=== PATIENT | male | born 1965 | race Caucasian/White ===

== ENCOUNTER 2022-10-20 14:58 | Emergency (ER) | payer MEDICAID, SELFPAY ==
[2022-10-20 15:12] VITALS: BP 105/64; PULSE 66; RESP 17; TEMP 36.8; O2SAT 95; BMI 22.3
--- NOTE | 2022-10-20 15:32 | XR_ITS ---
WS: [id number] Left forearm, AP and lateral views, 10/20/2022 Clinical Data: fall Comparison: None. Findings: There is a fracture of the distal left radius with dorsal displacement. There is an ulnar styloid fra cture. There is soft tissue swelling about the fractures. The proximal left radius and ulna are normal. XR/XR forearm LT 2V [id number] Impression: Fractures of the distal left radius and left ulnar styloid.
--- NOTE | 2022-10-20 15:32 | ED_ITS ---
HPI - Fall General: Chief Complaint: Fall Stated Complaint: FALL/ WRIST FX Time Seen by Provider: 10/20/22 15:02 Source: patient Mode of arrival: EMS Limitations: no limitations History of Present Illness: This patient was transported to the emergency department by EMS. He apparently was walking down the road and slipped on ice. He states he landed on his left arm. He has had a previous fracture in that arm and thinks he may have broken it again. He denies any head injury, other associated pain. Does not take any anticoagulant or antiplatelet agents. Place fall occurred: street Loss of consciousness: None Location of injury - extremities: Left: forearm Associated symptoms-after fall: Denies chest pain, headache(s), neck pain or vertigo Review of Systems Const: Denies: fever(s) or chills Card: Denies: chest pain, palpitations, syncope or pre-syncope Resp: Denies: dyspnea, productive cough or non-productive cough GI: Denies: nausea, vomiting or diarrhea : Denies: flank pain Musc: Reports: extremity pain and limited range of motion; Denies: neck pain or back pain Skin/Breast: Denies: rash or pruritus Neuro: Denies: headache(s), numbness in extremities, weakness in extremities, dizziness, vertigo or seizure-like activity Psych: Denies: anxiety or depression Physical Exam Narrative: EXAM NARRATIVE: Is alert makes good eye contact speech is goal-directed. He is somewhat disheveled. Const: COMMON NORMALS: no acute distress and average body habitus GENERAL APPEARANCE: cooperative and disheveled ORIENTATION/CONSCIOUSNESS: Yes awake HENMT: COMMON NORMALS: normocephalic, atraumatic, moist oral mucous membranes and oropharynx normal HEAD & SCALP: normocephalic and atraumatic FACE & SINUS: normal facial exam Eye: COMMON NORMALS: Equal, round and reactive pupils present, EOMs intact bilaterally and conjunctivae normal CONJUNCTIVA: Yes conjunctivae normal PUPIL: Yes Equal, round and reactive pupils present Neck/C-Spine: COMMON NORMALS: full ROM CERVICAL SPINE: Yes cervical ROM normal, No Cervical spine tenderness, No step off deformity, No Paracervical spasm and No Trapezius muscle tenderness Chest: COMMONS NORMALS: normal inspection of the chest and normal palpation of entire chest wall Resp: COMMON NORMALS: normal respiratory effort, No use of accessory muscles and clear to auscultation bilaterally AUSCULTATION: clear to auscultation bilaterally Cardio: COMMON NORMALS: regular rate, regular rhythm and Peripheral pulses 2+ throughout RATE: regular rate RHYTHM: regular rhythm PERIPHERAL PULSES: Peripheral pulses 2+ throughout GI: COMMON NORMALS: Normal to inspection, nondistended, normoactive bowel sounds present and Soft to palpation PALPATION: Yes Soft to palpation : COMMON NORMALS: Yes no CVA tenderness BLADDER/KIDNEY EXAM: Yes no CVA tenderness Back/Pelvis: COMMON NORMALS: no CVA tenderness, thoracic and lumbar spine normal to inspection, no thoracic nor lumbar tenderness and thoraco-lumbar ROM normal PELVIS: Yes no pain with anterior-posterior compression and Yes no pain with lateral compression Extremity: NARRATIVE EXTREMITY EXAM: A flexible moldable splint was noted to be on the left forearm. After removal of the splint the arm was noted to have a dinner fork deformity at the distal one third. Neurovascular intact with good capillary refill and palpable radial ulnar pulses. Neuro: RADHA COMA SCALE: document GCS findings Radha coma scale eye opening: Spontaneous Radha coma scale verbal response: Orientated [place] coma scale motor response: Obey commands [place] coma scale total score: 15 COMMON NORMALS: moves all extremities, no focal motor deficits and no sensory deficits noted Skin: COMMON NORMALS: no rashes or lesions noted, no wounds and turgor normal GENERAL SKIN EXAM: no rashes or lesions noted and turgor normal Procedures Orthopedic Fracture Reduction Fracture #1: Time Out Performed: Yes Side: left Fracture Reduction Location: radius and ulna Analgesia: procedural sedation (Using propofol plus fentanyl) Technique: direct manipulation Post Reduction X-rays Demonstrate: anatomical reduction Post-reduction neuro exam: intact Post-reduction vascular exam: intact Splint Applied: Yes Patient Tolerated Procedure: well Additional Comments: Using situation of the deformity and then direct pressure the distal radius was approximated in a near anatomic position. Post reduction x-rays confirmed. He was placed in a sugar-tong splint and given a sling. Course Reevaluation(s): Reevaluation #1: Patient has recovered from sedation is at his baseline. We discussed expected course and orthopedic follow-up. Time: 17:39 Vital Signs: Vital signs: Vital Signs Temperature 98.2 F 10/20/22 15:12 Pulse Rate 80 10/20/22 17:15 Respiratory Rate 18 10/20/22 17:15 Blood Pressure 105/64 10/20/22 15:12 Pulse Oximetry 95 10/20/22 15:12 Oxygen Delivery Me thod 10/20/22 17:15 MDM - Fall Medical Decision Making Patient presented to our emergency department after ground-level fall without syncope, head injury etc. He suffered an isolated distal radius fracture. No evidence of other injury on his clinical examination. After informed consent the patient was reduced using procedural sedation and a near anatomic reduction was obtained. He was placed in a sugar-tong splint. Again he remained stable post sedation and will be referred to orthopedics for follow-up and either casting and/or operative fixation as indicated. We discussed potential for loss of reduction. Lab Data I reviewed the patient's lab results. Radiology Impressions Forearm X-Ray 10/20/22 15:32 Impression: Fractures of the distal left radius and left ulnar styloid. Discharge Plan Discharge Patient Disposition: Home Clinical Impression: Closed fracture of distal end of left radius Condition: Stable Prescriptions: New hydrocodone-acetaminophen 5-325 mg tablet 1 tab PO BID PRN (Reason: pain) Qty: 10 0RF Discharge Orders: Discharge ED (Routine); Ordered 10/20/22 Ordered By: Sage Gregory Discharge Diet: Usual diet Discharge Activity: Limit activity as instructed Patient Instructions: Opioid Safety, Pain Management Activity Restrictions/Additional Instructions: Keep splint dry. This is only a temporary splint until you are seen by the orthopedic surgeon. Use the sling for comfort. If you have significantly increasing pain, numbness, tingling or change in the color of your fingers etc. return to this emergency department immediately. You will be contacted in the next few days by case management regarding her orthopedic follow-up. Coding Level of Care Code ED Training And Development Officer for [place] Skinner Exam Comprehensive
--- NOTE | 2022-10-20 15:41 | PC.PHAR ---
pt states he takes no rx or otc medications-no meds pull up on ext med history
[2022-10-20 17:15] VITALS: PULSE 80; RESP 18; O2SAT 100
[2022-10-20 17:18] VITALS: BP 132/70; PULSE 76; RESP 20; O2SAT 99
--- NOTE | 2022-10-20 17:18 | XRR_ITS ---
PROCEDURE INFORMATION: Exam: XR Left Wrist Exam date and time: 10/20/2022 5:18 PM Age: 57 years old Clinical indication: Pain; Wrist; Left; Additional info: Wrist FX, post reduction TECHNIQUE: Imaging protocol: Radiologic exam of the Left wrist. Views: 1 or 2 views. COMPARISON: No relevant prior studies available. FINDINGS: Bones/joints: Comminuted and impacted fracture of the distal left radius with moderate radial displacement of the major fracture fragment. Displaced ulnar styloid process avulsion fractures also visualized. No dislocation. Soft tissues: Surrounding soft tissue swelling of the wrist. XR/XR wrist LT 2V [id number] IMPRESSION: 1. Comminuted and impacted distal left radius fracture with moderate displacement. 2. Displaced ulnar styloid process fracture.
[2022-10-20 18:00] VITALS: PULSE 73; O2SAT 97
--- NOTE | 2022-10-21 09:08 | DCPLANNER ---
Addendum entered by Ayaka Amaro 11/30/22 07:13: Patient had follow up appointment with ortho - patient did attend appointment. Addendum entered by Ayaka Amaro 10/21/22 11:40: Patient has a follow up appointment scheduled for Monday, October 24, 2022 at 9:[address] Harmon. Clinic will call patient with appointment information. Original Note: traffic operations manager had message to schedule a follow up appointment for patient with ortho. traffic operations manager sent patients information to the front office staff at ortho. Patients information will be printed and reviewed. Clinic will call patient with appointment information.
== END 2022-10-20 18:26 | disposition home or self-care (01) ==
PROVIDERS: Emergency Provider Emergency Medicine
DX: S52.502A Unspecified fracture of the lower end of left radius, initial encounter for closed fracture (principal); W00.0XXA Fall on same level due to ice and snow, initial encounter
CPT/HCPCS: 29125; 73090; 73100; 99283

== ENCOUNTER 2022-10-28 08:27 | Day surgery (SDC) | payer MEDICAID, SELFPAY ==
[2022-10-27 09:59] VITALS: BMI 22.3
[2022-10-28] VITALS (12 sets, daily range): BP systolic 103–148; BP diastolic 60–98; PULSE 59–77; RESP 12–20; TEMP 36.1–37.3; O2SAT 97–100
--- NOTE | 2022-10-28 | XR_ITS ---
WS: [id number] Exam: XR wrist LT 1V [id number] Date/Time of Exam: 10/28/2022 12:00 AM Reason For Exam: Left distal radius open reduction internal fixation intra-ar Single lateral view of the left wrist is submitted for evaluation. Comparison to October 20, 2022. There is volar plate and screw fixation involving a fracture of the distal radial metaphysis. Postope rative changes in the adjacent soft tissues. Soft tissue swelling about the wrist and distal forearm. No other significant finding from this single image presented.
--- NOTE | 2022-10-28 08:53 | W.PM.OPSUD ---
Surgery/Procedure H&P Update DATE OF PROCEDURE: October 28, 2022 DATE H&P PERFORMED: 10/24/22 CHANGES TO PREVIOUS DOCUMENTATION: None PREOP DIAGNOSIS: Displaced, angulated left distal radius fracture PRIMARY INDICATION FOR PROCEDURE: Patient has displaced and angulated left distal radius fracture PLANNED PROCEDURE: Operation Date: 10/28/22 12:35 Proposed Procedures p Left Distal radius open reduction internal [id number](Left) - Zi Harmon DO
--- NOTE | 2022-10-28 09:04 | ANES.PREANE2 ---
Pre-Anesthetic Assessment Height/Weight: Height 1.8 m Weight 72.575 kg Temp Pulse Resp BP Pulse Ox O2 Del Method 97.1 F L 59 L 18 144/78 97 10/28/22 07:40 10/28/22 07:40 10/28/22 07:40 10/28/22 07:40 10/28/22 07:40 10/28/22 08:57 Preop Diagnosis: Displaced, angulated left distal radius fracture Operation Date: 10/28/22 12:35 Proposed Procedures p Left Distal radius open reduction internal [id number](Left) - Zi [place], Familial anesthetic complications: None Was Beta Cris taken within 24 hours: N/A Was Clonidine taken within 24 hours: N/A Last intake: Intake Last Liquid Date 10/27/22 Last Liquid Time 20:00 Last Solid Date 10/27/22 Last Solid Time 20:00 Social Tobacco and No alcohol Exam alert, oriented x 3, clear to auscultation bilaterally and regular rate & rhythm Airway Mallampati: Class I Dentition: other (no teeth) Anesthetic Plan ASA status: 1 Anesthesia: General and Regional (specify below) Risk of > 500 ml blood loss (7ml/kg in children): No Medications/Allergies Home Medications Medication Instructions Recorded Confirmed Last Taken Type ketorolac 10 mg tablet 10 mg PO Q8H 4 days #12 tabs 10/24/22 10/27/22 Unknown Rx hydrocodone 5 mg-acetaminophen 325 1 tab PO Q6H PRN pain 7 days #28 10/28/22 Unknown Rx mg tablet tabs Allergies Allergy/AdvReac Type Severity Reaction Status Date / Time No Known Allergies Allergy Verified 10/28/22 08:54 Data Anesthesia Cardiac Studies: No Data to Display
[2022-10-28] MEDS: sodium chloride 0.9% 1,000 ML 30 ML IV (09:08)
[2022-10-28] MEDS: acetaminophen 1,000 MG/100 ML PIGGYBACK 400 MG IV (09:09)
[2022-10-28] MEDS: ketorolac 30 mg/mL INJ IVP (09:10)
[2022-10-28] MEDS: ceFAZolin 2,000 MG in sodium chloride 0.9% (plus) 50 ML 100 MG IV (09:53)
--- NOTE | 2022-10-28 09:54 | ANES.PROC ---
Anesthesia Procedures Procedure/Date: 10/28/22 Nerve Block ^: Nerve Block 1: Main Anesthesia: general anesthesia Time Out Performed: Yes Consent: requested by attending/covering physician, from patient, from other, risks and benefits reviewed and patient agrees to proceed Anesthesia monitors applied: pulse oximetry, EKG, BP cuff and oxygen Nerve block position: supine Anesthetic Used: ropivicaine 0.5% (30 ml) and with decadron (4 mg) Ultrasound used to: recognize landmarks and visualize and ID brachial plexus Nerve Stimulator Used?: No Interscalene/Femoral BLK: 2 stimuplex 22 g needle used for position and inplane approach, visualize local anesthetic spread and no vascular puncture identified Injection: neg aspiration of heme Patient Tolerated Procedure: well Complications: none
--- NOTE | 2022-10-28 10:31 | PC.NURSE ---
prior to surgery, scrubbed the left arm to fingertips x2 with 4% chg scrub brushes
--- NOTE | 2022-10-28 11:33 | PM.OP2 ---
Brief Operative Note Date of procedure: 10/28/22 Pre-op diagnosis: Left distal radius 3 part intra-articular fracture Post-op diagnosis: same Procedure Done: Left distal radius open reduction internal fixation intra-articular 3 part Surgeon: Zi Harmon Estimated blood loss (mL): 3 Complications: None Post-op Plan: Patient taken to PACU in stable condition recovering well. Splint on in place. Patient will receive appropriate discharge instructions as well as pain medication postoperatively. We will plan on following up with patient in 1 week for splint takedown and incision check and reapplication of splint, given that patient did already have a significantly dirty splint within the past 5 days of a new splint being applied. He understands importance of appropriate hygiene for infection prophylaxis and as well as be nonweightbearing to the left wrist. All questions answered. We will see in 1 week. Condition: stable Disposition: same day Coding Level of Care Code Acute Code for [place] Fwradha
--- NOTE | 2022-10-28 11:33 | PM.PACU ---
PACU note Narrative: Patient taken to PACU in stable condition recovering well. Unable to assess motor or sensory secondary to patient receiving regional anesthesia. Dressings clean dry and intact. Fingertips warm well-perfused brisk capillary refill less than 2 seconds. Exam: awake Disposition: discharged
--- NOTE | 2022-10-28 11:33 | PM.OP ---
Operative Report Date of procedure: October 28, 2022 Pre-op diagnosis: Preop Diagnosis Displaced, angulated left distal radius fracture Post-op diagnosis: Left distal radius fracture displaced angulated and intra-articular 3 part Procedure done: Left distal radius open reduction internal fixation intra-articular 3 part Implants: Arthrex 5 hole volar distal radius plate Combination of 3.5 mm locking and nonlocking screws proximally Combination of 2.7 mm locking and nonlocking screws distally. Surgeon: Zi Harmon DO Estimated blood loss: 3mL 59min IV fluids: See anesthesia record Complications: None Condition: stable Disposition: same day Brief History: Patient's been seen and evaluated in the outpatient setting findings consistent with preoperative diagnosis of displaced intra-articular Distal radius frature. He is young and active and utilizes his hands. He has significant deformity clinically. Of note patient has a previous distal radius fracture went on to heal uneventfully as he states this was treated nonoperatively given minimal displacement. Overall given the intra-articular nature significant displacement and dorsal angulation and clinical deformity we talked about treatment options and ultimately given his age I think he would benefit from surgical intervention as far as early wrist range of motion postoperatively as well. Through shared decision-making he elects to proceed with surgical intervention of left distal radius ORIF. We talked about risk benefits complication alternatives surgical nonsurgical treatment options. Understands risk of surgery he elects to proceed. All questions answered. Procedure: Patient was seen and evaluated in the preoperative holding area. Consent was reviewed and signed with patient. Correct extremity marked. Patient was then seen evaluated by Anesthesia Department and received preoperative regional anesthesia. Once cleared for surgery was taken back to the operative suite. He was placed in supine position on the OR table all bony prominences well-padded patient properly secured to the bed. Armboard applied to the left arm. Nonsterile tourniquet applied to the left upper arm. Patient's left upper extremity once appropriately anesthetized was prepped and draped in standard orthopedic fashion. Final timeout performed. Patient received appropriate preoperative antibiotics. Esmarch was used to exsanguinate the left upper extremity and tourniquet was insufflated to 250 mmHg A standard modified volar FCR approach was used to approach left distal radius. Sharp scalpel incision made through skin. Switched to Littler dissection scissors dissected over top the FCR tendon sheath. Once identified this was longitudinally incised both proximally and distally and the FCR was taken ulnarly. I then went the interval of FCR and radial artery which the radial artery was protected throughout the duration of this case. I then incised the floor of the FCR sheath with care just to stay in line with the sheath and took this all the way distally. Next day bluntly sweep the FPL ulnarly and blunt retractors were then placed and I was directly visualizing the pronator quadratus. Pronator quadratus was subsequently released in standard 7 fashion the volar cortex asleep with a blunt elevator free of all interposed pronator quadratus muscle belly. I then identified the main fracture fragment and patient had significant dorsal angulation and translation with interposed muscle belly. I subsequently opened up the fracture and cleared this of all debris and well as irrigation. Multiple attempts were made for manual manipulation which I was able to cordoba the volar cortex however patient continued to have significant residual radial translation as result I elected to perform our standard release of the brachial radialis with care to protect the radial artery and the tendons of the first dorsal compartment to allow for appropriate mobilization and fracture reduction. Once this was done I was able to mobilize the fracture site as well as completely deliver and cleared the dorsal cortex of the fracture fragments delivering the shaft out of the wound and pronating this. Once all interposed bony debris early callus formation as well as pronator muscle belly was cleared of the fracture site I was able to achieve a satisfactory reduction as well as scientology of radial inclination height and volar inclination. While manually holding this I did evaluate on mini fluoroscopic C arm and patient was noted to have a apex on the volar cortex from his previous healed fracture site. This made patient's volar cortex have a unique contour and s-shaped from his old healed distal radius fracture. Given this as well as my worry for potential patient compliance I elected for a 5 hole plate for added fixation proximally. Plate was subsequently selected has a 5 hole standard size Arthrex volar locking plate for left distal radius. This was subsequently pinned in appropriate place and distally. Once satisfied with this placement I placed the peek guide for the distal screws. This was subsequently drilled measured and a fully threaded cortical screw was then applied to compress the plate to bone distally. Given patient's proximal previous healed fracture there was a defect of the cortex which then I subsequently drilled a bicortical proximal screw to compress this down to bone and to potentially accentuate the volar angulation. Once this was done it was clearly evident that this translated my fracture site and my screw trajectory given the plate placement on this nonanatomic bone created my screw trajectory to be more exactly within the fracture site and caused an appropriate translation. As a result it was clearly evident in order to accommodate patient's bony anatomy and need to bend the plate. As result all screws were removed as well as the plate. I did a manual reduction of my fracture with appropriate cortical read of the volar cortex. When I was satisfied with this and mini C arm I then placed my plate onto this and identified the appropriate area that needed to bend this plate into a slight S configuration to help accommodate his anatomy and not create any displacement by just the plate and bone interface. Appropriate contour was then subsequently made I then placed the plate into appropriate position. This was then pinned in correct position and once satisfied I then subsequently drilled and placed a bicortical 3.5 mm locking screw to compress the plate to bone. Once satisfied with this I made small adjustments to where the plate was satisfied placement both proximally and distally once this was done I then subsequently read drilled and placed a bicortical screw distally to bring the plate to bone. Then I took x-rays to confirm appropriate plate placement as well as screw trajectory. At this point time the distal screw appeared to be outside of my fracture site. If I were to go any further distal this would cause disruption in watershed line and ultimately given his anatomy and my contour the plate this was a most appropriate position. I then once satisfied with all plate placement as well as reduction I then subsequently drilled measured and placed locking screws distally I then swapped out the cortical screw distally for a locking screw and then placed an additional locking peg within the radial styloid. Next I subsequently turned my attention proximally where I subsequently drilled and measured an additional 3 more screws proximally of locking and nonlocking screws this completed 4 screws proximally as well as 5 screws distally. Patient had excellent scientology of radial height and inclination and appropriate plate placement. Screws were confirmed to be out of the joint with multiple orthogonal images in appropriate length and no penetration of the dorsal cortex with mini C arm. Just completed my distal radius fixation I then took the wrist through pronation supination testing the DRUJ and this was found to be stable. Satisfied with plate placement as well as fixation of the wrist was taken through range of motion and the fracture was stable. Tourniquet was then subsequently deflated. Hemostasis satisfactory. Wound bed was thoroughly irrigated. I then closed the incision in layered fashion with 3-0 Vicryl and skin was then closed with Monocryl for skin, Dermabond and Steri-Strips. 4 x 4's Kerlix and a volar splint was applied to the left upper extremity. Patient was then subsequently awakened from anesthesia and taken to PACU in stable condition. Patient tolerated procedure without complications. Disposition: Patient taken to PACU in stable condition recovering well. Splint on in place clean dry and intact. Patient to be nonweightbearing left upper extremity. Patient will receive appropriate discharge instruction as well as pain medication postoperatively. Understands importance of keeping his splint clean dry and intact for appropriate hygiene and infection prophylaxis. We will see him back in 1 week. All questions answered.
--- NOTE | 2022-10-28 14:06 | ANE.PACU2 ---
Inpatient post-anesthesia follow up: Airway intact: Yes Vital signs: Temperature 97.4 F Pulse Rate 63 Respiratory Rate 16 Blood Pressure 126/85 Pulse Oximetry 99 Oxygen Delivery Me thod Room Air Oxygen Flow Rate Fraction of Inspir ed Oxygen Hydration adequate: Yes Nausea and vomiting: No Pain level: 1 Mental status: Baseline
== END 2022-10-28 13:00 | disposition home or self-care (01) ==
PROVIDERS: Visit Provider Student in an Organized Health Care Education/Training Program
PROC: (CPT 25609; principal; 2022-10-28 12:25)
DX: S52.572A Other intraarticular fracture of lower end of left radius, initial encounter for closed fracture (principal); W19.XXXA Unspecified fall, initial encounter
CPT/HCPCS: 25609; 73100; 76000; C1713 ×2; J0131; J0690; J1100; J1885; J2405; J2704; J2795; J3010; J7030

== ENCOUNTER → 2022-11-09 09:48 | Outpatient (BNVA) | payer MEDICAID, SELFPAY | PROVIDERS: Visit Provider Nurse Practitioner Family | DX: S52.612S Displaced fracture of left ulna styloid process, sequela (principal); X58.XXXA Exposure to other specified factors, initial encounter; X58.XXXS Exposure to other specified factors, sequela; S52.502A Unspecified fracture of the lower end of left radius, initial encounter for closed fracture | CPT/HCPCS: 73110 ==

== ENCOUNTER 2022-11-09 15:07 | Outpatient (CLI) | payer MEDICAID, SELFPAY | END 2022-11-09 15:08 | disposition home or self-care (01) | LOC: SPT 15:07 | PROVIDERS: Visit Provider Nurse Practitioner Family | DX: Z47.89 Encounter for other orthopedic aftercare (principal); S52.592D Other fractures of lower end of left radius, subsequent encounter for closed fracture with routine healing; X58.XXXD Exposure to other specified factors, subsequent encounter | CPT/HCPCS: L3908 ==

== ENCOUNTER → 2022-12-05 12:52 | Outpatient (BNVA) | payer MEDICAID, SELFPAY | PROVIDERS: Visit Provider Student in an Organized Health Care Education/Training Program | DX: S52.502D Unspecified fracture of the lower end of left radius, subsequent encounter for closed fracture with routine healing (principal); S52.612G Displaced fracture of left ulna styloid process, subsequent encounter for closed fracture with delayed healing; X58.XXXD Exposure to other specified factors, subsequent encounter | CPT/HCPCS: 73110 ==

== ENCOUNTER → 2023-01-30 13:27 | Outpatient (BNVA) | payer MEDICAID, SELFPAY | PROVIDERS: Visit Provider Student in an Organized Health Care Education/Training Program | DX: M79.632 Pain in left forearm (principal); S52.502S Unspecified fracture of the lower end of left radius, sequela; S52.612S Displaced fracture of left ulna styloid process, sequela; W19.XXXA Unspecified fall, initial encounter | CPT/HCPCS: 73110 ==

== ENCOUNTER → 2023-11-16 14:35 | Outpatient (BNVA) | payer MEDICAID, SELFPAY | PROVIDERS: Visit Provider Student in an Organized Health Care Education/Training Program | DX: M25.532 Pain in left wrist (principal); R20.0 Anesthesia of skin; R20.2 Paresthesia of skin | CPT/HCPCS: 73110 ==

== ENCOUNTER 2024-04-03 07:42 | Day surgery (SDC) | payer MEDICAID, SELFPAY ==
[2024-04-03] VITALS (11 sets, daily range): BP systolic 115–162; BP diastolic 75–100; PULSE 63–75; RESP 11–24; TEMP 36.4–36.9; O2SAT 96–100; BMI 20.9
[2024-04-03] MEDS: ketorolac 30 mg/mL INJ IVP (08:04)
[2024-04-03] MEDS: sodium chloride 0.9% 1,000 ML 30 ML IV (08:04)
[2024-04-03] MEDS: acetaminophen 1,000 MG/100 ML PIGGYBACK 400 MG IV (08:05)
[2024-04-03] MEDS: scopolamine 1.5 Patch 1 PATCH TRANSDERMA (08:07)
--- NOTE | 2024-04-03 08:34 | W.PM.OPSFHP ---
Same Day Surgery H&P Indication for Procedure/HPI DATE OF PROCEDURE: April 03, 2024 CHIEF COMPLAINT/INDICATIONFOR SURGICAL PROCEDURE: Left carpal tunnel syndrome, left Guyon's canal entrapment, left cubital tunnel syndrome PREOP DIAGNOSIS: Left carpal tunnel syndrome, left Guyon's canal entrapment, left cubital tu PLANNED PROCEDURE: Operation Date: 04/03/24 09:15 Proposed Procedures p Carpal Tunnel Release(Left) - Zi Eden, DO s Ulnar nerve release of Guyon Canal Release(Left) - Zi Eden, DO s Cubital Tunnel Release(Left) - Zi Eden, DO s 30(Left) - Zi Eden, DO Medications/Allergies* Home Medications Medication Instructions Recorded Confirmed Type No Known Home Medications 11/16/23 04/02/24 History Allergies/Adverse Reactions Allergy/AdvReac Type Severity Reaction Status Date / Time No Known Allergies Allergy Verified 04/02/24 16:21 Current Medications: Generic Name Dose Route Start Last Admin Trade Name Freq PRN Reason Stop Dose Admin Sodium Chloride 1,000 mls @ 30 mls/hr 04/03/24 08:00 04/03/24 08:04 Sodium Chloride 0.9% IV 04/04/24 07:59 30 mls/hr .Q24H ANA Administration Pertinent History/Comorbid Conditions* Social History Smoking and tobacco/nicotine status: current every day tobacco/nicotine user Alcohol intake: never Pertinent Exam Findings alert, oriented x 3, operative site marked and procedure specific exam findings Orthopedic examination today demonstrates positive Tinel's over the cubital tunnel as well as Guyon's and carpal tunnel. Paresthesias at the median ulnar nerve distribution. Previous volar wrist incision is well-healed no signs of infection. Please refer to detailed orthopedic examination on 02/22/2024 for further exam: Bilateral Hand exam-positive Tinel's and positive Phalen's test. no thenar atrophy and no thenar muscle weakness. Full range of motion in fingers and wrist and fingers are warm and well-perfused with normal cap refill under 2 seconds. Radial pulse 2+, intrinsic muscle weakness noted. Bilateral Elbow exam-positive Tinel's test Recommendations Surgery/Procedure today Other Plans: Plan for the OR today for left carpal tunnel release, and left ulnar nerve release of guyons canal, cubital tunnel release at elbow with possible ulnar nerve transposition. Patient understands the ins and outs procedure risk benefits complication alternatives with surgery and through shared decision make elects proceed with surgical intervention. All questions answered at this time. Coding Level of Care Code Acute Code for Chg Fwd
--- NOTE | 2024-04-03 08:55 | P.ANESASSM_ITS ---
Pre-Anesthetic Assessment Height/Weight: Height 1.8 m Weight 68.039 kg Temp Pulse Resp BP Pulse Ox O2 Del Method 98.5 F 75 18 162/100 96 Room Air 04/03/24 07:58 04/03/24 07:58 04/03/24 07:58 04/03/24 08:07 04/03/24 07:58 04/03/24 08:08 Preop Diagnosis: Left carpal tunnel syndrome, left Guyon's canal entrapment, left cubital tu Operation Date: 04/03/24 09:15 Proposed Procedures p Carpal Tunnel Release(Left) - Zi Eden, DO s Ulnar nerve release of Guyon Canal Release(Left) - Zi Eden, DO s Cubital Tunnel Release(Left) - Zi [place], DO s 30(Left) - Zi Eden, DO Was Beta Cris taken within 24 hours: N/A Was Clonidine taken within 24 hours: N/A Last intake: Intake Last Liquid Date 04/02/24 Last Liquid Time 23:00 Last Solid Date 04/02/24 Last Solid Time 23:00 Social Tobacco and No alcohol 1 pack(s) per day Exam alert, oriented x 3, clear to auscultation bilaterally and regular rate & rhythm Airway Submandibular: within normal limits Cervical ROM: within normal limits Mallampati: Class I Pulmonary None reported CV/HEM None reported None reported Hepatic None reported GI Gastroesophageal Reflux Disease Metabolic None reported Musc/skel Lower Back Pain Neuropsych Anxiety Anesthetic Plan ASA status: 2 Anesthesia: General Risk of > 500 ml blood loss (7ml/kg in children): No Medications/Allergies Home Medications Medication Instructions Recorded Confirmed Last Taken Type No Known Home Medications 11/16/23 04/02/24 Unknown History Allergies Allergy/AdvReac Type Severity Reaction Status Date / Time No Known Allergies Allergy Verified 04/02/24 16:21 Current Medications Generic Name Dose Route Start Last Admin Trade Name Freq PRN Reason Stop Dose Admin Sodium Chloride 1,000 mls @ 30 mls/hr 04/03/24 08:00 04/03/24 08:04 Sodium Chloride 0.9% IV 04/04/24 07:59 30 mls/hr .Q24H ANA Administration PFSH Anesthesia Social History Smoking and tobacco/nicotine status: current every day tobacco/nicotine user Alcohol intake: never Data Anesthesia Cardiac Studies: No Data to Display
[2024-04-03] MEDS: ceFAZolin 2,000 MG in sodium chloride 0.9% (plus) 50 ML 100 MG IV (09:08)
[2024-04-03] MEDS: ROPivacaine 0.5% SDV 30 mL 50 MG INJECTION (09:45)
[2024-04-03] MEDS: lidocaine-epi 1% 20 mL INJ 10 ML INJECTION (09:45)
--- NOTE | 2024-04-03 10:15 | P.BOP_ITS ---
Date of Procedure: 04/03/2024 Surgeon: Zi Harmon DO Vascular Technologist Sonographer(s): None Procedure(s) performed: Left carpal tunnel release Left wrist Guyon canal release (ulnar nerve decompression at the wrist) Left cubital tunnel release (ulnar nerve decompression at the elbow) Findings of the procedure(s): Patient had left carpal tunnel syndrome, left canal ulnar nerve entrapment as well as left cubital tunnel syndrome underwent release and decompression without issues or complications patient had no evidence of ulnar nerve instability afterwards decompression as result ulnar nerve release in situ was performed no transposition. Patient placed into a volar splint for the wrist incision taken back in stable condition. Estimated blood loss: 5 mL Specimen(s) removed: [None] Post-operative diagnosis: Left carpal tunnel syndrome, left ulnar nerve entrapment at Guyon's canal, left cubital tunnel syndrome
--- NOTE | 2024-04-03 10:18 | PM.OP ---
Operative Report Date of procedure: April 03, 2024 Surgeon: Zi Harmon DO Procedure: Preoperative diagnosis? Left? carpal tunnel syndrome Left ulnar nerve entrapment at the wrist Left Cubital tunnel syndrome Postop Diagnosis: same Procedure done: Left carpal tunnel release Left wrist Guyon canal release (ulnar nerve decompression at the wrist) Left cubital tunnel release (ulnar nerve decompression at the elbow) Surgeon: Zi Harmon DO Estimated blood loss: 5mL Tourniquet? 32 minutes IV fluids: 800mL Complications: None Findings: See operative report narrative Condition: stable Disposition: same day Brief History: Patient's been seen and worked up in the outpatient setting and findings consistent with preoperative diagnosis.? Patient has? Left Carpal Tunnel Syndrome,Left ulnar entrapment at?guyons?canal, left cubital tunnel syndrome? which has been worked up in the outpatient setting has physical exam findings consistent with this.? Patient's nerve study consistent with this.? Exam findings consistent with preoperative diagnosis.? Patient's failed conservative treatment.? As result through shared decision making agreed to proceed with Left carpal tunnel release , Left ulnar nerve release at the wrist (guyons canal) and left cubital tunnel release. We talked about tx options as nonoperative and operative intervention.? Understands risk benefits complication alternatives surgical nonsurgical treatment options.? Understanding? risks pt agrees to proceed with surgical intervention. Understanding these risks pt agrees to proceed with surgery.? Consent obtained in office. Procedure: Patient seen evaluate in the preoperative holding area.? Consent was reviewed and signed with patient.? Correct extremity marked.? Patient seen evaluated by anesthesia department once cleared for surgery was then taken back to the operative suite placed in supine position all bony prominences well-padded patient properly secured to bed.? Left upper extremity placed onto armboard.? Nonsterile tourniquet applied Left upper arm.? Patient then underwent anesthesia per the anesthesia department.? Patient's Left upper extremity was then prepped and draped in standard orthopedic fashion.? Final timeout performed.? Patient received appropriate preoperative antibiotics. Esmarch was used exsanguinate the Left upper extremity.? Tourniquet was insufflated to 250 mmHg. I started with my release of the ulnar nerve at the wrist.? An extensive laterally based palmar incision that extended proximal past the wrist crease with a Tanya incision was made directly over Guyon's canal.? At this point in time incision was made between the Pisa form and hamate to follow neurovascular bundle of Guyon's canal.? sharp scalpel incision was subsequently made through skin and then I switched to Littler dissection scissors.? At this point in time I dissected down over top?guyons?canal release the brevis muscle belly along the hypothenar region to obtain access into Guyon's canal.? Thick band of fascia was noted proximally just proximal to the wrist crease this was released and made sure there was complete decompression of the ulnar nerve proximally just prior to Guyon's canal subsequently released guyon canal and direct visualization with sharp scalpel excision as well as Littler dissection scissors with care utilizing my specimen preparation assistant to protect the neurovascular bundle.? At this point in time I continued to perform release of the fascia/the roof of Guyon's canal all the way to its most distal extent and the nerve was found to be completely free and untethered.? I then in order to perform release of the deep motor branch I then mobilized my dissection around the ulnar nerve and identified the deep motor branch as it courses towards the underneath fascia connected with the hamate.? I then utilized dissection scissors and under direct visualization completed my release carefully of the fascial bands tethering over top of the deep motor branch.? At this point in time the ulnar nerve was completely decompressed through Guyon's canal and? ulnar nerve had complete laxity with no areas of entrapment or tethering. No masses were noted within the contents of the?guyons?canal.? This completed the ulnar nerve release at the wrist. Next I then subsequently visualized from the ulnar aspect of the carpal tunnel.? Identified the distal extent as well as proximal extent into the antebrachial fascia.? As result approaching the carpal tunnel from the ulnar position just above the hook of the hamate made an incision through thickened Transverse carpal ligament.? It was noted there was significant entrapment of the median nerve.? I then switched to Littler dissection scissors to complete my dissection and release distally with care to protect neurovascular structures distally.? The tendons were healthy within the carpal tunnel.? No masses were noted.? I then carried my dissection proximally utilizing retraction by my specimen preparation assistant as well as direct visualization with loupe magnification identify the proximal extent of the carpal tunnel and release this to its entirety as well as identified the median nerve and released the tethering of the antebrachial fascia proximally past the wrist crease into the distal aspect of the forearm with no further evidence of median nerve entrapment.? The median nerve overall showed signs of compression and inflammation irritation but overall appeared healthy.?? Next marked out the landmarks of the Left elbow of the medial epicondyle and olecranon and made a curvilinear incision following the course of the ulnar nerve at the medial aspect of the elbow.? Sharp scalpel incision was made through skin and subcutaneous tissue.? Next I switched to Littler dissection scissors and spread in plane of the medial antebrachial cutaneous nerve branching which was protected throughout this part of the dissection.? Then I directly came down over the fascia and identified the 2 heads of the FCU fascia and split this Left in the middle and subsequently identified my ulnar nerve distally.? This was then completely released distally under direct visualization and loupe magnification.? Once the nerve was then identified I then subsequently tracked this proximally and released this through Jauregui's ligament as well as complete decompression of the nerve proximally all the way past the intermuscular septum.? The nerve was completely released and decompressed both proximally and distally.? Ulnar nerve neurolysis performed and completed both proximally and distally with dissection scissors.? I then took the elbow through range of motion and there was no instability or subluxating of the ulnar nerve.? This completed?cubital?tunnel release.? ?Next the wound bed was thoroughly irrigated.? Tourniquet was deflated.? Hemostasis was satisfactory.? ?The incision was then closed in standard interrupted mattress fashion.? Dressing was Xeroform 4 x 4's ABD Curlex soft roll and an Tobin wrap has a bulky soft dressing and volar splint.? Patient was then awakened from anesthesia and taken to PACU in stable condition. Disposition: Patient taken to PACU in stable condition recovering well.? Patient will receive appropriate discharge instructions as well as pain medication postoperatively.? We will follow-up with me in the office in 2 weeks.? Patient understands agrees with current plan.? All questions answered.? pt understands if any questions or concerns and contact the office for follow-up appointment..
--- NOTE | 2024-04-03 11:55 | ANE.PACU2 ---
Inpatient post-anesthesia follow up: Airway intact: Yes Vital signs: Temperature 97.8 F Pulse Rate 68 Respiratory Rate 18 Blood Pressure 134/78 Pulse Oximetry 100 Oxygen Delivery Me thod Room Air Oxygen Flow Rate 8 Fraction of Inspir ed Oxygen Hydration adequate: Yes Nausea and vomiting: No Pain level: 1 Mental status: Baseline
== END 2024-04-03 11:55 | disposition home or self-care (01) ==
PROVIDERS: PCP Nurse Practitioner Family; Visit Provider Student in an Organized Health Care Education/Training Program
PROC: (CPT 64721; principal; 2024-04-03 09:15)
PROC: (CPT 64719; 2024-04-03 09:15)
PROC: (CPT 64718; 2024-04-03 09:15)
DX: G56.02 Carpal tunnel syndrome, left upper limb (principal); G56.22 Lesion of ulnar nerve, left upper limb; K21.9 Gastro-esophageal reflux disease without esophagitis; F17.200 Nicotine dependence, unspecified, uncomplicated
CPT/HCPCS: 64718; 64719; 64721; J0131; J0690; J1100; J1885; J2405; J2704; J2795; J3010; J7030

== ENCOUNTER → 2024-05-07 09:09 | Outpatient (BNVA) | payer MEDICAID, SELFPAY | PROVIDERS: PCP Nurse Practitioner Family; Visit Provider Orthopaedic Surgery | DX: M54.9 Dorsalgia, unspecified (principal); M48.062 Spinal stenosis, lumbar region with neurogenic claudication | CPT/HCPCS: 72110 ==

== ENCOUNTER → 2024-06-04 09:28 | Outpatient (BNVA) | payer MEDICAID, SELFPAY | PROVIDERS: PCP Nurse Practitioner Family; Visit Provider Physician Assistant | DX: G56.03 Carpal tunnel syndrome, bilateral upper limbs; G56.23 Lesion of ulnar nerve, bilateral upper limbs | CPT/HCPCS: 73110 ==

== ENCOUNTER 2024-07-08 05:56 | Day surgery (SDC) | payer MEDICAID, SELFPAY ==
[2024-07-08] VITALS (10 sets, daily range): BP systolic 125–143; BP diastolic 77–93; PULSE 70–82; RESP 16–18; TEMP 36.3–36.8; O2SAT 96–100; BMI 21.9
[2024-07-08] MEDS: sodium chloride 0.9% 1,000 ML 30 ML IV (06:20)
[2024-07-08] MEDS: acetaminophen 1,000 MG/100 ML PIGGYBACK 400 MG IV (06:20)
[2024-07-08] MEDS: ketorolac 30 mg/mL INJ IVP (06:21)
[2024-07-08] MEDS: scopolamine 1.5 Patch 1 PATCH TRANSDERMA (06:28)
--- NOTE | 2024-07-08 06:46 | W.PM.OPSFHP ---
Same Day Surgery H&P Indication for Procedure/HPI DATE OF PROCEDURE: July 08, 2024 CHIEF COMPLAINT/INDICATIONFOR SURGICAL PROCEDURE: Right carpal tunnel syndrome, right cubital tunnel syndrome, right Wrist Guyon canal entrapment PREOP DIAGNOSIS: Right carpal tunnel syndrome right cubital tunnel syndrome right wrist [place] PLANNED PROCEDURE: Operation Date: 07/08/24 07:50 Proposed Procedures p Carpal Tunnel Release(Right) - Zi Hodgeman, DO s Guyon Canal Release(Right) - Zi [place], DO s Cubital Tunnel Release(Right) - Iz Eden, DO s Ulnar Nerve Transposition(Right) - Zi Hodgeman, DO Medications/Allergies* Home Medications Medication Instructions Recorded Confirmed Type No Known Home Medications 04/22/24 06/18/24 History Allergies/Adverse Reactions Allergy/AdvReac Type Severity Reaction Status Date / Time No Known Allergies Allergy Verified 07/08/24 06:19 Current Medications: Generic Name Dose Route Start Last Admin Trade Name Freq PRN Reason Stop Dose Admin Sodium Chloride 1,000 mls @ 30 mls/hr 07/08/24 06:15 07/08/24 06:20 Sodium Chloride 0.9% IV 07/09/24 06:14 30 mls/hr .Q24H ANA Administration Pertinent History/Comorbid Conditions* Social History Smoking and tobacco/nicotine status: current every day tobacco/nicotine user Alcohol intake: never Pertinent Exam Findings alert, oriented x 3, operative site marked and procedure specific exam findings Please refer to detailed orthopedic examination listed below on 06/04/2024: Right Hand exam-positive Tinel's and positive Phalen's test. no thenar atrophy and no thenar muscle weakness. Full range of motion in fingers and wrist and fingers are warm and well-perfused with normal cap refill under 2 seconds. Radial pulse 2+, intrinsic muscle weakness noted. Right Elbow exam-positive Tinel's test Recommendations Surgery/Procedure today Other Plans: Plan to proceed to OR for Right carpal tunnel release and ulnar nerve release of guyons canal and cubital tunnel release at elbow with possible ulnar nerve transposition. Patient's already underwent procedure to the left side and is done well with this has been satisfied with his results and would like to pursue surgical intervention for the right side at this point in time he understands the ins and outs procedure the risk benefits complication alternatives surgery and through shared decision make elects proceed with surgical intervention. All questions answered at this time. Coding Level of Care Code Acute Code for Chg Fwd
--- NOTE | 2024-07-08 07:01 | ANES.PREANE2 ---
Pre-Anesthetic Assessment Height/Weight: Height 1.8 m Weight 71.214 kg Temp Pulse Resp BP Pulse Ox O2 Del Method 97.3 F L 75 18 139/93 100 Room Air 07/08/24 06:11 07/08/24 06:11 07/08/24 06:11 07/08/24 06:11 07/08/24 06:11 07/08/24 06:12 Preop Diagnosis: Right carpal tunnel syndrome right cubital tunnel syndrome right wrist [place] Operation Date: 07/08/24 07:50 Proposed Procedures p Carpal Tunnel Release(Right) - Zi [place], DO s Guyon Canal Release(Right) - Zi [place], DO s Cubital Tunnel Release(Right) - Zi [place], DO s Ulnar Nerve Transposition(Right) - Zi Eden, DO Familial anesthetic complications: None Was Beta Cris taken within 24 hours: N/A Was Clonidine taken within 24 hours: N/A Last intake: Intake Last Liquid Date 07/07/24 Last Liquid Time 22:00 Last Solid Date 07/07/24 Last Solid Time 22:00 Social No alcohol and No tobacco Airway Mallampati: Class I Dentition: other (no teeth) Anesthetic Plan ASA status: 1 Anesthesia: General Other: Desires to avoid nerve block if able Risk of > 500 ml blood loss (7ml/kg in children): No Medications/Allergies Home Medications Medication Instructions Recorded Confirmed Last Taken Type No Known Home Medications 04/22/24 06/18/24 Unknown History Allergies Allergy/AdvReac Type Severity Reaction Status Date / Time No Known Allergies Allergy Verified 07/08/24 06:19 Current Medications Generic Name Dose Route Start Last Admin Trade Name Bettina PRN Reason Stop Dose Admin Sodium Chloride 1,000 mls @ 30 mls/hr 07/08/24 06:15 07/08/24 06:20 Sodium Chloride 0.9% IV 07/09/24 06:14 30 mls/hr .Q24H ANA Administration PFS Anesthesia Social History Smoking and tobacco/nicotine status: current every day tobacco/nicotine user Alcohol intake: never Data Anesthesia Cardiac Studies: No Data to Display
[2024-07-08] MEDS: ceFAZolin 2,000 MG in sodium chloride 0.9% (plus) 50 ML 100 MG IV (07:29)
[2024-07-08] MEDS: lidocaine-epi 1% 20 mL INJ INJECTION (08:00)
[2024-07-08] MEDS: ROPivacaine 0.5% SDV 30 mL 150 MG INJECTION (08:00)
--- NOTE | 2024-07-08 09:06 | P.BOP_ITS ---
Date of Procedure: 07/08/2024 Surgeon: Zi Harmon DO Personal Injury Specialist(s): James Harmon PA-C Procedure(s) performed: Right carpal tunnel release Right wrist Guyon canal release (ulnar nerve decompression at wrist) Right cubital tunnel release (ulnar nerve decompression at the elbow) Findings of the procedure(s): Patient found to have right carpal tunnel syndrome rightCubital tunnel syndrome as well as right wrist Guyon canal entrapment at the wrist. Patient underwent procedure as planned without issues or complications there is no evidence of ulnar nerve instability and as a result ulnar nerve release was performed in situ with no transposition patient was placed in a volar splint for the wrist and taken to PACU in stable condition. Estimated blood loss: 15 mL Specimen(s) removed: None Post-operative diagnosis: Right carpal tunnel syndrome, right wrist ulnar nerve entrapment at the wrist at Guyon's canal, right cubital tunnel syndrome
--- NOTE | 2024-07-08 09:08 | P.OP_ITS ---
Operative Report Date of procedure: July 08, 2024 Surgeon: Zi Harmon DO Script Coordinator: James Harmon PA-C: PA was necessary for assistance in this case with hand positioning to execute the procedure, retraction and protection of neurovascular structures as well as to assist with wound closure and dressing application. Procedure: Preoperative diagnosis? Right? 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 38 minutes IV fluids: 1300mL Complications: None Findings: See operative report narrative Condition: stable Disposition: same day Brief History: Patient's been seen and worked up in the outpatient setting and findings consistent with preoperative diagnosis.? Patient has? Right Carpal Tunnel Syndrome,Right ulnar entrapment at?guyons?canal, Right cubital tunnel syndrome? which has been worked up in the outpatient setting has physical exam findings consistent with this.? Patient's nerve study consistent with this for?right carpal tunnel syndrome and Exam findings consistent with preoperative chaitanya gnosis.? Patient's failed conservative treatment.? As result through shared decision making agreed to proceed with Right carpal tunnel release , Right ulnar nerve release at the wrist (guyons canal) and Right cubital tunnel release. We talked about tx options as nonoperative and operative intervention.? Understands risk benefits complication alternatives surgical nonsurgical treatment options.? Understanding? risks pt agrees to proceed with surgical intervention. Understanding these risks pt agrees to proceed with surgery.? Consent obtained. Procedure: Patient seen evaluate in the preoperative holding area.? Consent was reviewed and signed with patient.? Correct extremity marked.? Patient seen evaluated by anesthesia department once cleared for surgery was then taken back to the oper ative suite placed in supine position all bony prominences well-padded patient properly secured to bed.? Right upper extremity placed onto armboard.? Nonsterile tourniquet applied Right upper arm.? Patient then underwent anesthesia per the anesthesia department.? Patient's Right upper extremity was then prepped and draped in standard orthopedic fashion.? Final timeout performed.? Patient received appropriate preoperative antibiotics. Esmarch was used exsanguinate the Right upper extremity.? Tourniquet was insufflated to 250 mmHg. I started with my release of the ulnar nerve at the wrist.? An extensive laterally based palmar incision that extended proximal past the wrist crease with a Tanya incision was made directly over Guyon's canal.? At this point in time incision was made between the Pisa form and hamate to follow neurovascular bundle of Guyon's canal.? sharp scalpel incision was subsequently made through skin and then I switched to Littler dissection scissors.? At this point in time I dissected down over top?guyons?canal release the brevis muscle belly along the hypothenar region to obtain access into Guyon's canal.? Thick band of fascia was noted proximally just proximal to the wrist crease this was released and made sure there was complete decompression of the ulnar nerve proximally just prior to Guyon's canal subsequently released guyon canal and direct visualization with sharp scalpel excision as well as Littler dissection scissors with care utilizing my human resources office assistant to protect the neurovascular bundle.? At this point in time I continued to perform release of the fascia/the roof of Guyon's canal all the way to its most distal extent and the nerve was found to be completely free and untethered.? I then in order to perform release of the deep motor branch I then mobilized my dissection around the ulnar nerve and identified the deep motor branch as it courses towards the underneath fascia connected with the hamate.? I then utilized dissection scissors and under direct visualization completed my release carefully of the fascial bands tethering over top of the deep motor branch.? At this point in time the ulnar nerve was completely decompressed through Guyon's canal and? ulnar nerve had complete laxity with no areas of entrapment or tethering. No masses were noted within the contents of the?guyons?canal.? This completed the ulnar nerve release at the wrist. Next I then subsequently visualized from the ulnar aspect of the carpal tunnel.? Identified the distal extent as well as proximal extent into the antebrachial fascia.? As result approaching the carpal tunnel from the ulnar position just above the hook of the hamate made an incision through thickened Transverse carpal ligament.? It was noted there was significant entrapment of the median ne rve.? I then switched to Littler dissection scissors to complete my dissection and release distally with care to protect neurovascular structures distally.? The tendons were healthy within the carpal tunnel.? No masses were noted.? I then carried my dissection proximally utilizing retraction by my human resources office assistant as well as direct visualization with loupe magnification identify the proximal extent of the carpal tunnel and release this to its entirety as well as identified the median nerve and released the tethering of the antebrachial fascia proximally past the wrist crease into the distal aspect of the forearm with no further evidence of median nerve entrapment.? The median nerve overall showed signs of compression and inflammation irritation but overall appeared healthy.?? Next marked out the landmarks of the Right elbow of the medial epicondyle and olecranon and made a curvilinear incision following the course of the ulnar nerve at the medial aspect of the elbow.? Sharp scalpel incision was made through skin and subcutaneous tissue.? Next I switched to Littler dissection scissors and spread in plane of the medial antebrachial cutaneous nerve branching which was protected throughout this part of the dissection.? Then I directly came down over the fascia and identified the 2 heads of the FCU fascia and split this Right in the middle and subsequently identified my ulnar nerve distally.? This was then completely released distally under direct visualization and loupe magnification.? Once the nerve was then identified I then subsequently tracked this proximally and released this through Jauregui's ligament as well as complete decompression of the nerve proximally all the way past the intermuscular septum.? The nerve was completely released and decompressed both proximally and distally.? Ulnar nerve neurolysis performed and completed both proximally and distally with dissection scissors.? I then took the elbow through range of motion and there was no instability or subluxating of the ulnar nerve.? This completed?cubital?tunnel release.? ?Next the wound bed was thoroughly irrigated.? Tourniquet was deflated.? Hemostasis was satisfactory.? ?The incision was then closed in standard interrupted mattress fashion.? Dressing was Xeroform 4 x 4's ABD Curlex soft roll and an Tobin wrap has a bulky soft dressing and volar splint.? Patient was then awakened from anesthesia and taken to PACU in stable condition. Disposition: Patient taken to PACU in stable condition recovering well.? Patient will receive appropriate discharge instructions as well as pain medication pos toperatively.? We will follow-up with me in the office in 2 weeks.? Patient understands agrees with current plan.? All questions answered.? pt understands if any questions or concerns and contact the office for follow-up appointment.
--- NOTE | 2024-07-08 09:16 | PM.PACU ---
PACU note Narrative: Patient is a 58-year-old male just underwent a left carpal tunnel left cubital tunnel release. Patient transferred to PACU in stable condition. Pain is well controlled. Dressing on hand is dry and in place. Patient's fingers are warm and well-perfused. Patient can wiggle fingers. normal cap refill under 2 seconds. Patient has normal elbow range of motion. Unable to assess sensation due to residual localized anesthetic. Exam: awake Disposition: discharged
--- NOTE | 2024-07-08 10:15 | ANE.PACU2 ---
Inpatient post-anesthesia follow up: Airway intact: Yes Vital signs: Temperature 98.2 F Pulse Rate 78 Respiratory Rate 18 Blood Pressure 138/88 Pulse Oximetry 97 Oxygen Delivery Me thod Room Air Oxygen Flow Rate 6 Fraction of Inspir ed Oxygen Hydration adequate: Yes Nausea and vomiting: No Pain level: 1 Mental status: Baseline
== END 2024-07-08 10:17 | disposition home or self-care (01) ==
PROVIDERS: PCP Nurse Practitioner Family; Visit Provider Student in an Organized Health Care Education/Training Program
PROC: (CPT 64721; principal; 2024-07-08 07:50)
PROC: (CPT 64719; 2024-07-08 07:50)
PROC: (CPT 64718; 2024-07-08 07:50)
DX: G56.01 Carpal tunnel syndrome, right upper limb (principal); G56.21 Lesion of ulnar nerve, right upper limb; F17.200 Nicotine dependence, unspecified, uncomplicated
CPT/HCPCS: 64718; 64719; 64721; J0131; J0690; J1100; J1885; J2371; J2405; J2704; J2795; J3010; J7030